=== PATIENT | female | born 1935 | race Caucasian/White ===

== ENCOUNTER 2018-07-07 05:36 | Outpatient (CLI) | payer MEDICARE ==
[~2018-07-07] VITALS: Ht 175.3 cm; Wt 102.1 kg
[~2018-07-07 05:36] MED LIST: ACHYD1T PO; CYCL10TA9 PO; GBPN600T PO; HYDR-2889 PO; INSU100V6 SQ; LEVO75TA6 PO; LOSA1TAB23 PO; MUCUS RELIEF DM PO; PRM25T PO
[2018-07-07] MEDS ORDERED: LEVO75TA6 PO (10:40)
[2018-07-07] MEDS ORDERED: LOSA1TAB23 PO (10:40)
[2018-07-07] MEDS ORDERED: INSU100V6 SQ (10:40)
[2018-07-07] MEDS ORDERED: HYDR-3816 PO (10:41)
[2018-07-07] MEDS ORDERED: GABA600T2 PO (10:41)
== END 2018-07-07 12:30 | disposition home or self-care (01) ==
LOC: PREOP 05:36
PROVIDERS: ATTEND Orthopaedic Surgery
DX: Z01.818 Encounter for other preprocedural examination (principal)

== ENCOUNTER 2018-07-14 07:11 | Day surgery (SDC) | payer MEDICARE ==
[~2018-07-14] VITALS: Ht 175.3 cm; Wt 102.1 kg
[~2018-07-14 07:11] MED LIST changes: +GABA600T2 PO; +HYDR-3816 PO
--- OUTSIDE RECORDS SUMMARY | 2018-07-14 07:14 | XMS REPORT | Continuity of Care Document ---
Author Author [facility] Organization [facility] Address Unknown Phone Unavailable Allergies Active Description Code Type Severity Reaction Onset Reported/Identified Relationship to Patient Clinical Status Yes No Known Drug Allergies [id number] Drug Allergy Unknown N/A 08/17/2013 Yes pregabalin [id number] Drug Allergy Mild MUSCLE CRAMPS 07/07/2018 Yes Vxblrog-Xpe-Yoz Reductase Inhibitor [id number] Drug Allergy Mild MUSCLE CRAMPS 07/07/2018 Medications There is no data. Problems Date Dx Coded Attending Type Code Diagnosis Diagnosed By 07/08/2018 HAROON HOWARD DO Ot Z01.818 ENCOUNTER FOR OTHER PREPROCEDURAL EXAMIN Procedures There is no data. Results There is no data. Encounters ACCT No. Visit Date/Time Discharge Status Pt. Type Provider Facility Loc./Unit Complaint [id number] 07/07/2018 05:36:00 07/07/2018 12:30:00 DIS Outpatient HAROON HOWARD DO [facility] PREOP BACK PAIN [id number] 08/31/2013 07:15:00 09/01/2013 12:30:00 DIS Inpatient [id number] 08/17/2013 11:42:00 08/17/2013 23:59:59 CLS Outpatient [id number] 07/14/2018 10:00:00 PEN Preadmit [facility]
[2018-07-14 07:18] VITALS: BP 150/79
[2018-07-14] MEDS ORDERED: VANCOMYCIN 1000 MG/VIAL ONE (07:21)
[2018-07-14] MEDS ORDERED: BUP/EPI 0.5% 1:200,000 (SENSORCAINE) 30 ML VIAL ONE (07:21)
[2018-07-14] MEDS ORDERED: GENTAMICIN 40 MG/ML 2 ML INJ SDV ONE (07:21)
[2018-07-14] MEDS ORDERED: ceFAZolin 2 GM IV Premixed 50 ML IV ONE (07:30)
[2018-07-14] MEDS ORDERED: fentaNYL INJECTION 100 MCG/2 ML AMP ONE (07:55)
[2018-07-14] MEDS ORDERED: SUCCINYLCHOLINE INJ 100 MG/5 ML SYR ONE (07:55)
[2018-07-14] MEDS ORDERED: LIDOCAINE PF 2% 2 ML (XYLOCAINE) VIAL ONE ×2 (07:55)
[2018-07-14] MEDS ORDERED: ONDANSETRON 4 MG/2 ML (SDV) Z0FRAN ONE (07:55)
[2018-07-14] MEDS ORDERED: ROCURONIUM 10 MG/ML 5 ML SYRINGE IV ONE (07:55)
[2018-07-14] MEDS ORDERED: MIDAZOLAM 2 MG/2 ML (VERSED) VIAL ONE (07:55)
[2018-07-14] MEDS ORDERED: proPOfol 200 MG/20 ML (DIPRIVAN) VIAL IV ONE (07:55)
[2018-07-14] MEDS ORDERED: LIDOCAINE PF 1% 5 ML (XYLOCAINE) AMP ONE (08:04)
[2018-07-14] MEDS: LACTATED RINGERS 1,000 ML IV PRN ×2 (08:10→09:30)
[2018-07-14] MEDS ORDERED: OXYC1TAB87 PO (08:36)
--- NOTE | 2018-07-14 08:38 | Discharge Inst-Simple/Standard ---
Discharge Inst-Standard Discharge Medications New, Converted or Re-Newed RX: RX on Chart Patient Instructions/Follow Up Plan of Care/Instructions/FU: FOLLOW UP 2 WEEKS DONT BEND LIFT TWIST PUSH PULL KEEP INCISION COVERED CLEAN AND DRY Activity as Tolerated: No Discharge Diet: No Restrictions Return to The Hospital For: SHORTNESS OF BREATH CHEST PAIN FEVER, CHILLS WEAKNESS NEW NUMBNESS OR TINGLING TANESHA CARDENAS Jul 14, 2018 08:38
[2018-07-14] MEDS ORDERED: BACITRACIN 100,000 UNIT/NS 1000 ML POUR BOTTLE IR ONE ×2 (08:45)
[2018-07-14] MEDS ORDERED: SEVOFLURANE (ULTANE) 15 ML INHAL SOLN ONE (09:39)
[2018-07-14] MEDS ORDERED: ONDANSETRON 4 MG/2 ML (SDV) Z0FRAN IVP PRN (10:15)
[2018-07-14] MEDS ORDERED: morphine INJ 10 MG/ML 1ML (SYR OR VIAL) IVP ONE (10:15)
[2018-07-14] MEDS ORDERED: fentaNYL INJECTION 100 MCG/2 ML AMP IVP ONE (10:15)
[2018-07-14 11:05] VITALS: BP 198/78
[2018-07-14] MEDS ORDERED: oxyCODONE/APAP 5/325MG (PERCOCET 5) TABLET PO PRN (11:30)
[2018-07-14 11:35] VITALS: BP 172/97
[2018-07-14 12:15] VITALS: BP 167/63
[2018-07-14 13:20] VITALS: BP 167/63
--- NOTE | 2018-07-14 13:34 | OPERATIVE REPORT ---
DATE OF SERVICE: 07/14/2018 SURGEON: Haroon Figueroa DO KNITTER OPERATOR: KRISTINE Brown. This is a medically necessary procedure. Assistance was necessary for retraction of vital neurovascular structures. Without an assistant project manager, the procedure would not be possible. PREOPERATIVE DIAGNOSES: 1. Failed back surgery syndrome. 2. Lumbar radiculopathy. 3. Chronic pain syndrome. POSTOPERATIVE DIAGNOSES: 1. Failed back surgery syndrome. 2. Lumbar radiculopathy. 3. Chronic pain syndrome. PROCEDURES PERFORMED: 1. Placement of thoracic spinal cord stimulator paddle lead via thoracic laminotomy. 2. Placement of pulse generator. 3. Complex programming. COMPLICATIONS: None. SPECIMEN SENT: None. DRAINS PLACED: None. ANESTHESIA: General endotracheal tube anesthesia with local anesthetic. HISTORY OF PRESENT ILLNESS: The patient is a very pleasant 82-year-old female, who presented to me, status post lumbar surgery. She never did get adequate pain relief and she complained of severe neurogenic pain. She did have a trial of percutaneous spinal cord stimulator in which she obtained significant pain relief. She understood the risks and benefits of placement of permanent lead and wished to proceed. DESCRIPTION OF PROCEDURE: The patient was identified by name on wrist band in the preoperative holding area. Her operative site was signed, consent was signed. SCDs were placed. Neuromonitoring was hooked up and antibiotics were started. She was taken to the operating room theater and placed under general endotracheal tube anesthesia and transferred to the operating room table in the prone position. She was prepped and draped in usual sterile fashion. Formal timeout was conducted. At this point, AP x-ray was then brought in and the pedicles were marked out in the thoracic spine. I then made a midline thoracic incision over the indicated levels. I performed bilateral subperiosteal paraspinal muscular approach exposing the posterior elements. I then used a Leksell rongeur and high speed bur and Kerrison rongeurs to perform a laminotomy at the T8-T9 interspace. I gained access to the epidural space and carefully placed a [employer] Penta paddle lead in the midline position at the T7-T8 level. I tested this with the neuro food technologist as well as the [employer] rep. We were able to perform a series of complex programming maneuvers in which we ensured equal left and right lower extremity stimulation. At this point, I have made a right-sided flank incision. I bluntly dissected my way down and developed a pocket for the pulse generator. I used a tunneler to pass the lead from the thoracic wound to the flank wound where I then hooked up the pulse generator, final tightened it and checked the connectivity. I then buried that pulse generator into the flank wound. I irrigated both wounds. I anchored the lead into the thoracic fascia. I closed the wound in my usual layered fashion utilizing 0 Vicryl followed by 2-0 Vicryl followed by running 3-0 subcuticular stitch and applied dressings, took the patient in the supine position to the PACU where she awoke without incident. She tolerated the procedure well. PLAN: At this time is to discharge the patient today. I will see the patient back in 2 weeks. She knows to avoid any overhead reaching. Job ID: [id number] DocumentID: [id number] Dictated Date: 07/14/2018 10:03:51 Customer Success Director Date: 07/14/2018 13:33:24 Dictated By: HAROON FIGUEROA DO
--- NOTE | 2018-07-14 14:16 | Anesthesia-General Post-Op ---
General Patient Condition Mental Status/LOC: Same as Preop Cardiovascular: Satisfactory Nausea/Vomiting: Absent Respiratory: Satisfactory Pain: Controlled Complications: Absent Post Op Complications Complications None Follow Up Care/Instructions Patient Instructions None needed. Anesthesia/Patient Condition Patient Condition Patient is doing well, no complaints, stable vital signs, no apparent adverse anesthesia problems. No complications reported per nursing. DIONE QURESHI CRNA Jul 14, 2018 14:16
--- NOTE | 2018-07-14 17:01 | Diagnostic Imaging Report ---
INDICATION: Fluoroscopy during spinal cord stimulator placement. FINDINGS: Fluoroscopy was provided in the OR during spinal cord simulator placement. 10 seconds of fluoroscopy was utilized. A paddle stimulator is identified in the midline at the lower thoracic spine level. IMPRESSION: Fluoroscopy during spinal cord stimulator placement. Dictated by: Dictated on workstation # [id number]
== END 2018-07-14 13:20 | disposition home or self-care (01) ==
LOC: SDC 07:11
PROVIDERS: ATTEND Orthopaedic Surgery
DX: M54.16 Radiculopathy, lumbar region (principal); G89.4 Chronic pain syndrome; M48.02 Spinal stenosis, cervical region; M46.1 Sacroiliitis, not elsewhere classified; E11.40 Type 2 diabetes mellitus with diabetic neuropathy, unspecified; I10 Essential (primary) hypertension; K21.9 Gastro-esophageal reflux disease without esophagitis; E78.00 Pure hypercholesterolemia, unspecified; Z80.9 Family history of malignant neoplasm, unspecified; Z79.4 Long term (current) use of insulin; Z79.899 Other long term (current) drug therapy; Z96.653 Presence of artificial knee joint, bilateral
CPT/HCPCS: 82962; 87081